=== PATIENT | female | born 1940 | race Caucasian/White ===

== ENCOUNTER 2016-09-09 11:35 | Observation (INO) | payer MEDICARE, OTHER ==
[~2016-09-09] VITALS: Ht 162.6 cm; Wt 87.8 kg
[~2016-09-09 11:35] MED LIST: AMBIEN 10MG10 MG PO; ASPIRIN E.C. 8181 MG PO; ATORVASTATIN; AVAPRO150 MG PO; COLACE 100100 MG/CAP PO; COZAAR100 MG PO; DYAZIDE 25 MG-31 CAP PO; EFFEXOR-XR150 MG PO; EFFEXOR25 M1 PO; GABAPENTIN; IRON325 M1 PO; LIPITOR20 MG PO; LYRICA 50MG CAP50 MG PO; MULTAQ400 MG PO; NORCO 325 MG-51 TAB PO; NORVASC 10MG10 MG PO; PREMARIN .3MG0.3 MG PO; PREMARIN0.625 MG PO; PRILOSEC 20MG20 MG PO; TAMBOCOR50 MG PO; TOPROL XL 25MG25 MG PO; TYLENOL 325MG325 MG PO; XARELTO20 MG PO
[2016-09-09 12:02] LABS: BASO # 0.1 (0.0-0.2); BASO % 0.8 % (0.0-2.0); EOS # 0.2 (0.0-0.7); EOS % 2.8 % (0-4.0); GRAN # 4.2 (1.4-6.5); HEMATOCRIT 38.3 % (37.0-47.0); HEMOGLOBIN 12.4 g/dl (12.5-16.0); LYMPH # 1.3 (1.2-3.4); LYMPH % 20.5 % (20.0-51.0); MEAN CELL VOLUME 92 fl (80.0-100.0); MEAN CORPUSCULAR HEMOGLOBIN 30 pg (27.0-31.0); MEAN CORPUSCULAR HGB CONC 32 g/dl (33.0-37.0); MEAN PLATELET VOLUME 9.9 fl (7.4-10.4); MONO # 0.5 (0.1-0.6); MONO % 8.4 % (1.7-9.3); PLATELET COUNT 248 K/mm3 (130-400); RED BLOOD COUNT 4.17 M/mm3 (4.10-5.30); REDCELL DISTRIBUTION WIDTH-CV 14.2 % (11.5-14.5); WHITE BLOOD COUNT 6.3 K/mm3 (4.8-10.8)
[2016-09-09 12:12] LABS: INR 1.2 (0.8-3.0); PROTHROMBIN TIME 13.6 SECONDS (9.7-12.8)
[2016-09-09 12:14] LABS: PARTIAL THROMBOPLASTIN TIME 30.9 SECONDS (26.0-37.0)
[2016-09-09 12:16] LABS: ADJUSTED CALCIUM 9.6 mg/dL (8.4-10.2); ALANINE AMINOTRANSFERASE 34 U/L (9-52); ALBUMIN 4.4 gm/dL (3.5-5.0); ALKALINE PHOSPHATASE 99 U/L (50-136); ANION GAP 11 mmol/L (7-16); BILIRUBIN,TOTAL 0.9 mg/dL (0.0-1.0); BLOOD UREA NITROGEN 24 mg/dL (7-17); CALCIUM 9.9 mg/dL (8.4-10.2); CARBON DIOXIDE 28 mmol/L (22-30); CHLORIDE 100 mmol/L (98-107); CREATININE, serum 1.05 mg/dL (0.52-1.25); GLUCOSE 103 mg/dL (74-106); LIPASE 58 U/L (23-300); POTASSIUM 3.8 mmol/L (3.4-5.0); SODIUM 139 mmol/L (137-145); TOTAL PROTEIN 7.9 gm/dL (6.4-8.2)
[2016-09-09 12:29] LABS: TROPONIN-I < 0.012 ng/mL (0.000-0.034)
[2016-09-09 14:41] VITALS: BP 181/71; PULSE 56; TEMP 97.5
[2016-09-09] MEDS ORDERED: ESTRACE 1MG1 MG/TAB PO (16:46)
[2016-09-09] MEDS ORDERED: NORCO 325 MG-51 TAB PO (16:47)
[2016-09-09 17:45] VITALS: BP 158/65; PULSE 63; TEMP 97
[2016-09-09 19:31] VITALS: BP 150/58; PULSE 57; TEMP 97.8
[2016-09-09 23:48] VITALS: BP 123/44; PULSE 66; TEMP 97.5
[2016-09-10] VITALS (7 sets, daily range): BP systolic 119–183; BP diastolic 47–75; PULSE 58–85; TEMP 97.3–97.9
[2016-09-10 08:39] LABS: CHOLESTEROL 163 mg/dL (120-200); HDL CHOLESTEROL 46 mg/dL; LDL CHOLESTEROL 89 mg/dL; TRIGLYCERIDE 141 mg/dL
[2016-09-10 08:45] LABS: TROPONIN-I < 0.012 ng/mL (0.000-0.034)
[2016-09-10] MEDS ORDERED: ASPIRIN 81M81 MG/TA2 PO (14:08)
== END 2016-09-10 16:00 | disposition home or self-care (01) ==
LOC: COL.ER 11:35 → MEDICAL 13:06
PROVIDERS: Emergency Medicine
DX: R07.89 Other chest pain (principal); I10 Essential (primary) hypertension; G89.29 Other chronic pain; M54.5 Low back pain; K21.9 Gastro-esophageal reflux disease without esophagitis; D64.9 Anemia, unspecified; E78.5 Hyperlipidemia, unspecified
CPT/HCPCS: 99222-AI; 99238; A9502; G0378; J2785

== ENCOUNTER → 2016-11-21 | Outpatient (CLI) | payer MEDICARE, OTHER ==
[~2016-11-21] MED LIST changes: +ASPIRIN 81M81 MG/TA2 PO; +ESTRACE 1MG1 MG/TAB PO
== END ==
LOC: MC.RAD 14:00
DX: Z12.31 Encounter for screening mammogram for malignant neoplasm of breast (principal); Z80.3 Family history of malignant neoplasm of breast

== ENCOUNTER 2018-08-18 09:55 | Day surgery (SDC) | payer MEDICARE ==
[2018-08-18] VITALS (7 sets, daily range): BP systolic 130–176; BP diastolic 58–76; PULSE 63–70; TEMP 97.3
[~2018-08-18] VITALS: Ht 162.7 cm; Wt 85.0 kg
[~2018-08-18 09:55] MED LIST changes: -IRON325 M1 PO; +MACROBID 1100 MG/CAP PO; +MEDROL 4MG DOSPA4 MG PO; +NATURAL IRON65 MG PO
[2018-08-18] MEDS ORDERED: OS-CAL 500 + D1 TAB PO (10:55)
[2018-08-18] MEDS ORDERED: CENTRUM SILVER1 CTB PO (10:56)
[2018-08-18] MEDS ORDERED: ASPIRIN E.C. 8181 MG PO (10:57)
[2018-08-18] MEDS ORDERED: PRINIVIL40 MG PO (10:58)
[2018-08-18] MEDS ORDERED: DOXYCYCLINE 10100 MG PO (11:02)
[2018-08-18] MEDS ORDERED: TESSALON P100 MG/CAP PO (11:03)
[2018-08-18] MEDS ORDERED: NORCO 325 MG-51 TAB PO (11:06)
--- NOTE | 2018-08-18 12:00 | NUR ---
ALL MEDS GIVEN VERBAL WITH READBACK FROM DR. ALVARO ALEGRIA FOR ADMIN TIMES.
[2018-08-18] MEDS ORDERED: CLEOCIN HCL300 MG PO (12:14)
--- NOTE | 2018-08-18 12:20 | NUR ---
Pt returned to EU 15 per bed s/p loop recorder removal. Pt resting well, daughter at bedside.
--- NOTE | 2018-08-18 13:00 | NUR ---
Slight bleeding noted on L chest dressing. Pressure held for 5 min. Old dressing removed. No bleeding observed at site. Sterile gauze and tegaderm placed over site.
--- NOTE | 2018-08-18 13:35 | NUR ---
Pt has ambulated, voided and katarina PO intake s n/v. PIV removed with catheter intact. Pt discharged per w/c by nurse with daughter.
== END 2018-08-18 15:59 | disposition home or self-care (01) ==
LOC: COL.CAR 09:55
DX: Z45.09 Encounter for adjustment and management of other cardiac device (principal); I48.0 Paroxysmal atrial fibrillation; E78.5 Hyperlipidemia, unspecified; G43.909 Migraine, unspecified, not intractable, without status migrainosus; I12.9 Hypertensive chronic kidney disease with stage 1 through stage 4 chronic kidney disease, or unspecified chronic kidney disease; N18.9 Chronic kidney disease, unspecified; F32.9 Major depressive disorder, single episode, unspecified; K21.9 Gastro-esophageal reflux disease without esophagitis; G47.00 Insomnia, unspecified; D50.9 Iron deficiency anemia, unspecified; M17.11 Unilateral primary osteoarthritis, right knee; G89.29 Other chronic pain; G62.9 Polyneuropathy, unspecified; Z90.710 Acquired absence of both cervix and uterus; Z88.5 Allergy status to narcotic agent; Z88.1 Allergy status to other antibiotic agents; Z91.048 Other nonmedicinal substance allergy status; Z88.8 Allergy status to other drugs, medicaments and biological substances; Z79.82 Long term (current) use of aspirin; Z79.01 Long term (current) use of anticoagulants; Z82.49 Family history of ischemic heart disease and other diseases of the circulatory system; Z80.3 Family history of malignant neoplasm of breast
CPT/HCPCS: J2250; J3010; J3370; J7050

== ENCOUNTER 2019-10-20 12:22 | Emergency (ER) | payer MEDICARE ==
[~2019-10-20] VITALS: Ht 162.6 cm; Wt 65.9 kg
[~2019-10-20 12:22] MED LIST changes: +CENTRUM SILVER1 CTB PO; +CLEOCIN HCL300 MG PO; +DOXYCYCLINE 10100 MG PO; +OS-CAL 500 + D1 TAB PO; +PRINIVIL40 MG PO; +TESSALON P100 MG/CAP PO
[2019-10-20 12:56] VITALS: BP 115/62; TEMP 97.2
[2019-10-20 13:39] LABS: BASO # 0.1 (0.0-0.2); BASO % 1.1 % (0.0-2.0); EOS # 0.4 (0.0-0.7); EOS % 4.2 % (0-4.0); GRAN % 47.3 % (42.2-75.2); LYMPH # 3.2 (1.2-3.4); LYMPH % 38.8 % (20.0-51.0); MEAN CELL VOLUME 92 fl (80.0-100.0); MEAN CORPUSCULAR HGB CONC 32 g/dl (33.0-37.0); MONO # 0.7 (0.1-0.6); MONO % 8.4 % (1.7-9.3); PLATELET COUNT 280 K/mm3 (130-400); RED BLOOD COUNT 3.37 M/mm3 (4.10-5.30)
[2019-10-20 13:48] LABS: HEMOGLOBIN 9.9 g/dl (12.5-16.0); MEAN CORPUSCULAR HEMOGLOBIN 29 pg (27.0-31.0)
[2019-10-20 13:49] LABS: BILIRUBIN,TOTAL 0.4 mg/dL (0.0-1.0); CALCIUM 9.2 mg/dL (8.4-10.2); CREATININE, serum 1.24 (0.52-1.25); HEMATOCRIT 30.9 % (37.0-47.0); POTASSIUM 4.3 mmol/L (3.4-5.0); TOTAL PROTEIN 6.8 gm/dL (6.4-8.2)
[2019-10-20] MEDS ORDERED: NORCO 325 MG-51 TAB PO (15:01)
--- NOTE | 2019-10-20 15:14 | NUR ---
SANDIP villafana responded to the ED for a social contact worker for the patient due to recent fall. SANDIP villafana met with the patient and the patient's daughter, Carol. The patient states Carol is supportive and is her "right" hand. SANDIP villafana inquired about the patient's comfortability with abmulating in her home. She states she will be able to get around. SANDIP villafana provided education about home health services and if she would like to have those services set up before discharging. Patient refused. SANDIP villafana provided Medicare.gov's list of home health agencies to the patient and explained the process of obtaining services once she is home, if needed. She was agreeable to take the information. SANDIP villafana collaborated the above information with the patient's nurse.
[2019-10-20 15:18] VITALS: PULSE 68
== END 2019-10-20 15:18 | disposition home or self-care (01) ==
LOC: COL.ER 12:22
PROVIDERS: Emergency Medicine
DX: S80.02XA Contusion of left knee, initial encounter (principal); S70.12XA Contusion of left thigh, initial encounter; D64.9 Anemia, unspecified; I48.91 Unspecified atrial fibrillation; Z79.01 Long term (current) use of anticoagulants; W10.9XXA Fall (on) (from) unspecified stairs and steps, initial encounter; Y92.009 Unspecified place in unspecified non-institutional (private) residence as the place of occurrence of the external cause

== ENCOUNTER 2020-06-18 10:50 | Emergency (ER) | payer MEDICARE ==
[~2020-06-18] VITALS: Ht 162.6 cm; Wt 84.1 kg
[2020-06-18 11:09] VITALS: TEMP 98.5
[2020-06-18 12:40] LABS: BASO % 0.2 % (0.0-2.0); EOS % 0.1 % (0-4.0); GRAN # 5.2 (1.4-6.5); GRAN % 61.2 % (42.2-75.2); HEMOGLOBIN 10.6 g/dl (12.5-16.0); LYMPH # 2.5 (1.2-3.4); MEAN CELL VOLUME 87 fl (80.0-100.0); MEAN CORPUSCULAR HEMOGLOBIN 27 pg (27.0-31.0); MEAN CORPUSCULAR HGB CONC 32 g/dl (33.0-37.0); MEAN PLATELET VOLUME 10.1 fl (7.4-10.4); MONO # 0.7 (0.1-0.6); MONO % 8.1 % (1.7-9.3); PLATELET COUNT 216 K/mm3 (130-400); RED BLOOD COUNT 3.87 M/mm3 (4.10-5.30); REDCELL DISTRIBUTION WIDTH-CV 18.6 % (11.5-14.5)
[2020-06-18 12:42] LABS: HEMATOCRIT 33.6 % (37.0-47.0)
[2020-06-18 12:53] LABS: ALBUMIN 4.1 gm/dL (3.5-5.0); BILIRUBIN,TOTAL 0.6 mg/dL (0.0-1.0); C-REACTIVE PROTEIN 8.9 mg/dL (0.0-0.9); CALCIUM 8.9 mg/dL (8.4-10.2); CREATININE, serum 1.25 (0.52-1.25); TOTAL PROTEIN 7.4 gm/dL (6.4-8.2)
[2020-06-18 13:50] LABS: COLLECTION METHOD CLEAN CATCH
[2020-06-18] MEDS ORDERED: ZITHROMAX Z PA250 MG PO (13:59)
[2020-06-18] MEDS ORDERED: PREDNISONE10 MG PO (13:59)
[2020-06-18] MEDS ORDERED: NORCO 325 MG-51 TAB PO (14:00)
[2020-06-18 14:14] LABS: PH 5 (5-8); SQUAMOUS EPITHELIAL 0-2 /hpf; URINE APPEARANCE Hazy; URINE BACTERIA Rare /hpf; URINE BILIRUBIN Negative (NEGATIVE); URINE BLOOD Negative (NEGATIVE); URINE COLOR Yellow; URINE GLUCOSE Negative (NEGATIVE); URINE KETONE Negative (NEGATIVE); URINE LEUKOCYTE ESTERASE Negative (NEGATIVE); URINE NITRATE Negative (NEGATIVE); URINE PROTEIN(semi-quant) Negative (NEGATIVE); URINE UROBILINOGEN Negative (NEGATIVE)
[2020-06-18 15:32] VITALS: BP 146/64; PULSE 64
== END 2020-06-18 14:33 | disposition home or self-care (01) ==
LOC: COL.ER 10:50
PROVIDERS: Family Medicine
DX: U07.1 COVID-19 (principal); I10 Essential (primary) hypertension; G89.29 Other chronic pain; Z88.1 Allergy status to other antibiotic agents; Z88.6 Allergy status to analgesic agent; Z79.01 Long term (current) use of anticoagulants
CPT/HCPCS: J2405; J3010; J7120

== ENCOUNTER 2020-06-23 14:18 | Inpatient (IN) | payer MEDICARE ==
[~2020-06-23] VITALS: Ht 162.6 cm; Wt 81.8 kg
[~2020-06-23 14:18] MED LIST changes: +PREDNISONE10 MG PO; +ZITHROMAX Z PA250 MG PO
[2020-06-23 14:40] LABS: BASO % 0.1 % (0.0-2.0); EOS % 0.1 % (0-4.0); GRAN # 5.7 (1.4-6.5); GRAN % 72.7 % (42.2-75.2); HEMOGLOBIN 11.3 g/dl (12.5-16.0); LYMPH # 1.7 (1.2-3.4); LYMPH % 21.1 % (20.0-51.0); MEAN CELL VOLUME 84 fl (80.0-100.0); MEAN CORPUSCULAR HEMOGLOBIN 27 pg (27.0-31.0); MEAN CORPUSCULAR HGB CONC 32 g/dl (33.0-37.0); MEAN PLATELET VOLUME 9.8 fl (7.4-10.4); MONO # 0.4 (0.1-0.6); MONO % 5.2 % (1.7-9.3); PLATELET COUNT 301 K/mm3 (130-400); RED BLOOD COUNT 4.15 M/mm3 (4.10-5.30); REDCELL DISTRIBUTION WIDTH-CV 17.3 % (11.5-14.5)
[2020-06-23 14:54] LABS: ALBUMIN 3.9 gm/dL (3.5-5.0); BILIRUBIN,TOTAL 0.5 mg/dL (0.0-1.0); CALCIUM 9.4 mg/dL (8.4-10.2); CREATININE, serum 1.07 (0.52-1.25); POTASSIUM 3.8 mmol/L (3.4-5.0); TOTAL PROTEIN 7.3 gm/dL (6.4-8.2)
[2020-06-23 15:43] LABS: COLLECTION METHOD CLEAN CATCH
[2020-06-23 16:15] LABS: PH 7 (5-8); SQUAMOUS EPITHELIAL 0-2 /hpf; URINE APPEARANCE Hazy; URINE BACTERIA Rare /hpf; URINE BILIRUBIN Negative (NEGATIVE); URINE BLOOD Negative (NEGATIVE); URINE COLOR Yellow; URINE GLUCOSE Negative (NEGATIVE); URINE KETONE Negative (NEGATIVE); URINE LEUKOCYTE ESTERASE Negative (NEGATIVE); URINE NITRATE Negative (NEGATIVE); URINE PROTEIN(semi-quant) Negative (NEGATIVE); URINE RBC 0-2 /hpf; URINE UROBILINOGEN Negative (NEGATIVE)
--- NOTE | 2020-06-23 18:15 | NUR ---
Patient up to bathroom with assistance of one. PT was able to void an unmeasured amount. PT helped back to bed without incident. PT is laying in bed resting with call light in reach.
--- NOTE | 2020-06-23 19:58 | NUR ---
Patient alert and oriented, complain of weakness. patient was transferred from ER this evening. Medication reconciliation completed. Telemetry implemented.
[2020-06-23 20:07] VITALS: BP 170/88; PULSE 80; TEMP 98
--- NOTE | 2020-06-23 21:40 | NUR ---
Patient assessed at this time. Alert and oriented x 4, and able to make needs known. Complained of headache, and give PRN APAP as requested. Peripheral INT with NS running at 125 ml/hr. Site without redness, warmth, swelling, and pain. Currently on oxygen at 3.5 L/min via NC, humidified. Respirations even and unlabored. Patient has dry cough with no sputum production. LS CTA. Respirations even and unlabored. HRR. Telemetry in place: sinus. Capillary refill less than 3 seconds. Non-tenting skin turgor. BSAx4. Abdomen soft and non-tender. No edema. Voices no questions, needs, or concerns at this time. Resting in bed with call light within reach. Amulated to bathroom with stand-by assist with walker.
[2020-06-23 23:31] VITALS: BP 158/64; PULSE 64; TEMP 98.2
[2020-06-24 04:50] VITALS: BP 150/64; PULSE 75; TEMP 98.2
--- NOTE | 2020-06-24 06:32 | NUR ---
Patient has had no further complaints of pain or discomfort this shift since receiving PRN APAP around 2200. Continues on oxygen at 3.5 L/min via NC. Voices no questions, needs, or concerns at this time. Resting in bed with call light within reach.
[2020-06-24 08:00] VITALS: BP 138/78; PULSE 82; TEMP 97.9
--- NOTE | 2020-06-24 08:15 | NUR ---
Patient laying in bed, A&Ox3. VSS 3.5L NC O2. No complaints of SOB, has complaints of dizziness. Doctor notified. IV CDI, fluids infusing. Droplet/covid precautions in place. Patient instructed to call nursing staff when needing to ambulate. Patient verbalized an understanding to follow doctors orders. No further needs expressed from the patient. Call light within reach
[2020-06-24 12:00] VITALS: BP 140/90; PULSE 82; TEMP 97.8
[2020-06-24 16:50] VITALS: BP 164/58; PULSE 70; TEMP 98.4
--- NOTE | 2020-06-24 19:23 | NUR ---
Patient laying in bed. A&Ox3. VSS. 3.5L NC O2. No reported SOB. IV CDI fluids infusing. Droplet/contact precautions in place. No further needs expressed from the patient. Call light within reach
[2020-06-24 20:08] VITALS: BP 135/78; PULSE 72; TEMP 98.7
--- NOTE | 2020-06-24 22:20 | NUR ---
Pt resting in bed, assessment completed and medications given per OCT. pt reporting a headache rating a 6 out of 10, gave tylenol prn. onxygen via nasal cannula on 3.5 liters, lung sounds are diminished with a nonproductive cough. heart sounds are regular and normal. no other needs at this time, will continue to monitor.
[2020-06-25] VITALS (7 sets, daily range): BP systolic 115–176; BP diastolic 52–78; PULSE 68–76; TEMP 98–98.8
--- NOTE | 2020-06-25 04:43 | NUR ---
pt reporting nausea, gave zofran ODT prn and provided sprite and crackers per pt request. pt slept in bed most of the night, called for any assistance needed. no other needs at this time, will continue to monitor.
--- NOTE | 2020-06-25 07:59 | NUR ---
REPORT RECEVIED AND PT ROUNDED ON. VS CHARTED. ELEVATED BP BUT MANY SCHEDULED BP MEDS THIS MORNING. PT WITH STRONG COUGH, DRY. AWARE SPUTUM NEEDED. AMBULATED TO BATHROOM STANDBY ASSIST WITH WALKER. DESATURATED TO 88% ON 3.5l AND WOULD NOT INCREASE ABOVE 90% AFTER 8 MINS. INCREASED TO 4l WITH O2 SAT 93%. REPORTS HEADACHE 6/10 UNRELIEVED BY TYLENOL. DIARRHEA SINCE ADMISSION BTU NONE THIS AM. LUNGS CLEAR. DENIES NAUSEA. REPORTS FEELING VERY WEAK BUT DENIES VERTIGO. WILL CONT TO MONITOR.
--- NOTE | 2020-06-25 13:41 | NUR ---
pt rounded on. lunch delivered. reports headache gone. IVF dc'd as ordered. remains on 4L nc. no bathroom or other needs at this time.
--- NOTE | 2020-06-25 16:49 | NUR ---
Home Improvement Advisor spoke with patient by phone to discuss discharge planning as she is COVID positive. Patient lives alone in [place] and sees Dr. Montanez for primary care. Patient has most of her medications mailed to her by [facility] and also utilizes [facility]. Patient uses a cane and no other DME. Patient is currently requiring oxygen. Patient is independent with ADLS and would like to return home upon discharge. SW spoke with patient about home health services and patient states she doesn't feel it's necessary at this time. Patient has DPOA in the EMR which designates her daughter, Floresita. ANNE contacted Floresita who advised she is concerned about patient being strong enough to return home. Floresita would like patient to return home if she's able. Floresita also requested a call from the Hospitalist. ANNE contacted Dr. Torres and requested he call Floresita if he has time. ANNE also discussed PT/OT with Dr. Torres who states he spoke with staff analyst about getting patient up in her room. ANNE will continue to follow.
--- NOTE | 2020-06-25 17:56 | NUR ---
PT ROUNDED NON. ASSISTED INTO SHOWER WHERE SHE ONLY REQUIRED SET UP
--- NOTE | 2020-06-25 23:06 | NUR ---
pt resting in bed, assessment completed and medications given per MAR. pt denies shortness of breath, reports nonproductive cough and lung sounds are diminished. oxygen via nasal cannula on 4 liters. heart sounds are regular and normal. pt reporting headache that worsens when coughing, did not want any pain medication. fluids were discontinued today, pt independent in room and calls for any needs. will continue to monitor.
[2020-06-26 04:00] VITALS: BP 138/63; PULSE 75; TEMP 99.3
--- NOTE | 2020-06-26 06:18 | NUR ---
pt sleeping in bed most of the night, called for any needs. continues on oxygen at 4 liters nasal cannula. no fevers throughout the night, vital signs were stable. no other needs at this time.
[2020-06-26 07:44] VITALS: BP 186/76; PULSE 77; TEMP 99.4
--- NOTE | 2020-06-26 09:03 | NUR ---
PT PLEASANT, AOX4, C/O HEADACHE 01/24. PT C/O NAUSEA. BP MEDS GIVEN TO REDUCE BP AND TO DEC HEADACHE. ZOFRAN GIVEN FOR NAUSEA. PT ASSESSMENT PERFORMED, MEDICATIONS GIVEN, VITALS REVIEWED, PT IND IN ROOM. DID REPORT X1 EPISODE OF INCONTINENCE. TECH ASSISTED PT IN CLEANING UP AND CHANGING. ICE WATER BROUGHT IN, PT ATE MAJORITY OF BREAKFAST, NO OTHER NEEDS.
[2020-06-26 11:17] VITALS: BP 164/74; PULSE 64; TEMP 98.6
--- NOTE | 2020-06-26 12:40 | NUR ---
PT DAUGHTER UPDATED, NUMBER GIVEN TO PHYSICIAN FOR UPDATE FROM HIM.
--- NOTE | 2020-06-26 14:59 | NUR ---
PT DAUGHTER UPDATED, SHYANN ASKED TO CONTACT DAUGHTER PT PT'S DAUGHTER'S REQUEST.
[2020-06-26 16:28] VITALS: BP 138/96; PULSE 68; TEMP 97.9
--- NOTE | 2020-06-26 16:49 | NUR ---
Architectural Draftsman was contacted by patient's daughter, Carol who advised she heard from Hospitalist today, but was frustrated that this was the first time she has heard any updates on her mom. Carol states patient presented to the ED Thursday and no physician called her until today. Carol asked who she could speak to about this and ANNE provided contact information for Jael, Larry Operator. ANNE also contacted Jael and left a message. ANNE contacted Hospitalist to request PT/OT.
--- NOTE | 2020-06-26 17:02 | NUR ---
PT PLEASANT, AOX4, OXYGEN TURNED DOWN TO 2.5L, PT STILL SATTING 96%. WILL CONTINUE TO TITRATE DOWN. VITALS STABLE, PRN HYDRALAZINE ORDER PLACED FOR INC SYSTOLIC, PT DOES NOT REPORT SOB AT REST OR WITH ACTIVITY, REMDESIVIR INFUSING, PT REPORTED HEADACHE IN AM BUT HAS SINCE RESOLVED WITH NORCO. PT HAS GOOD INPUT. INDEPENDENT IN ROOM. NO OTHER NEEDS AT THIS TIME.
[2020-06-26 20:16] VITALS: BP 135/78; PULSE 72; TEMP 98.3
--- NOTE | 2020-06-26 23:14 | NUR ---
Pt resting in bed, delievered gift that was dropped off for pt. assessment completed and medications given per OCT. oxygen on at 2.5 liters via nasal cannula. pt reporting improvement of shortness of breath and dry cough. pt denies pain at this time. lung sounds are diminished. heart sounds regular and normal. no fever and vital signs are stable. will continue to monitor.
[2020-06-27] VITALS (7 sets, daily range): BP systolic 138–158; BP diastolic 60–86; PULSE 63–69; TEMP 97.8–98.3
--- NOTE | 2020-06-27 06:21 | NUR ---
pt sleeping most of the night, called for any needs or assistance. no fever, vital signs stable. pt denies pain and states that shortness of breath is improving. oxygen on 2.5 liters via nasal cannula, oxygen sat in mid 90s. no other needs at this time.
--- NOTE | 2020-06-27 08:40 | NUR ---
PT PLEASANT, AOX4, DENIES SOB, REPORTS SOME DYSPNEA ON EXERTION, PT STILL ON 2.5L NC. PT VITALS REVIEWED, MEDICAITONS GIVEN, AND ASSESSMENT PERFORMED, LABS DRAWN, ICE WATER AND BREAKFAST BROUGHT IN FOR PT. PT APPEARS IN GOOD SPIRITS, STATES SHE FEELS BETTER THAN SHE DID YESTERDAY. NO OTHER NEEDS.
[2020-06-27 09:08] LABS: BASO % 0.2 % (0.0-2.0); EOS % 0.2 % (0-4.0); GRAN # 5.1 (1.4-6.5); GRAN % 77.9 % (42.2-75.2); HEMOGLOBIN 10.1 g/dl (12.5-16.0); LYMPH % 14.9 % (20.0-51.0); MEAN CELL VOLUME 84 fl (80.0-100.0); MEAN CORPUSCULAR HEMOGLOBIN 27 pg (27.0-31.0); MEAN CORPUSCULAR HGB CONC 32 g/dl (33.0-37.0); MEAN PLATELET VOLUME 9.7 fl (7.4-10.4); MONO # 0.4 (0.1-0.6); MONO % 5.4 % (1.7-9.3); PLATELET COUNT 345 K/mm3 (130-400); RED BLOOD COUNT 3.73 M/mm3 (4.10-5.30); REDCELL DISTRIBUTION WIDTH-CV 16.9 % (11.5-14.5)
[2020-06-27 09:12] LABS: HEMATOCRIT 31.4 % (37.0-47.0)
[2020-06-27 12:32] LABS: ALBUMIN 3.2 gm/dL (3.5-5.0); BILIRUBIN UNCONJUGATED 0.1 mg/dL (0.0-1.1); BILIRUBIN,DIRECT 0.3 mg/dL (0.0-0.4); BILIRUBIN,TOTAL 0.4 mg/dL (0.0-1.0); CALCIUM 8.8 mg/dL (8.4-10.2); CREATININE, serum 0.95 (0.52-1.25); POTASSIUM 3.4 mmol/L (3.4-5.0); TOTAL PROTEIN 6.2 gm/dL (6.4-8.2)
--- NOTE | 2020-06-27 17:47 | NUR ---
PT ASSISTED TO BATHROOM, PT GAIT STEADY, ONCE PT BACK IN BED SHE DID NOT APPEAR SOB BUT HER O2 SATS WERE 87%. ONCE RESTING HER OXYGEN CAME UP TO 93%. BS TAKEN, VITALS TAKEN, PT PLEASANT, DINNER BROUGHT INTO ROOM. SHIFT OVERALL UNEVENTFUL, PT HAS ACTIVE COUGH WITH NO SPUTUM. NO OTHER NEEDS.
--- NOTE | 2020-06-27 19:25 | NUR ---
Patient assessed at this time. Alert and oriented x 4, and able to make needs known. Denies having pain and discomfort at this time. Peripheral INT to left AC flushed. Site without redness, warmth, swelling, and pain. Denies SOB and dysypnea at rest. Does report dyspnea with exertion. On oxygen at 2.5 L/min via NC. LS CTA. Respirations even and unlabored at rest. HRR. Capillary refill less than 3 seconds. Non-tenting skin turgor. BSAx4. Abdomen soft and non-tender. No edema. Voices no questions, needs, or concerns at this time. Resting in bed with call light within reach.
--- NOTE | 2020-06-27 21:15 | NUR ---
Patient complaining of headache. Given PRN [place] as requested. Voices no further questions, needs, or concerns at this time. Resting in bed with call light within reach.
[2020-06-28 04:50] VITALS: BP 160/90; PULSE 64; TEMP 97.6
--- NOTE | 2020-06-28 05:54 | NUR ---
Patient has had no further complaints of pain or discomfort since receiving PRN [place]. Has voiced no questions, needs, or concerns at this time. Continues to wear oxygen at 2.5 L/min via NC. Resting in bed with call light within reach. Contact/droplet isolation remains in place.
[2020-06-28 06:24] LABS: MEAN CELL VOLUME 85 fl (80.0-100.0); MEAN CORPUSCULAR HGB CONC 33 g/dl (33.0-37.0); MEAN PLATELET VOLUME 10.4 fl (7.4-10.4); PLATELET COUNT 365 K/mm3 (130-400); RED BLOOD COUNT 3.18 M/mm3 (4.10-5.30); REDCELL DISTRIBUTION WIDTH-CV 16.8 % (11.5-14.5)
[2020-06-28 06:25] LABS: HEMATOCRIT 26.9 % (37.0-47.0); HEMOGLOBIN 8.8 g/dl (12.5-16.0); MEAN CORPUSCULAR HEMOGLOBIN 28 pg (27.0-31.0)
[2020-06-28 06:33] LABS: CALCIUM 8.5 mg/dL (8.4-10.2); CREATININE, serum 0.98 (0.52-1.25); POTASSIUM 3.8 mmol/L (3.4-5.0)
[2020-06-28 06:41] LABS: HYPOCHROMIA 1+; LYMPHOCYTE 7 % (20.0-51.0); NEUTROPHILS 87 % (42.0-75.2); OVALOCYTES 1+; PLATELET ESTIMATE NORMAL (NORMAL)
[2020-06-28 09:56] VITALS: BP 148/84; PULSE 73; TEMP 97.7
--- NOTE | 2020-06-28 10:00 | NUR ---
Pt awake and alert upon, Pt in restroom, no C/O pain at this time, shift assessments complete, left Pt call light in reach, bed in lowest position.
[2020-06-28 13:07] VITALS: BP 132/54; PULSE 68; TEMP 98.2
--- NOTE | 2020-06-28 15:58 | NUR ---
Business Analysis Analyst followed up with patient's daughter Carol to discuss discharge planning. ANNE reviewed PT recommendation for Home Health and also advised that during PT evaluation, patient declined post acute rehab twice. ANNE advised that with patient having a positive COVID test, local SNFs would not accept until she has a negative. ANNE reviewed option for [facility] if needed. Carol would like to speak with patient then follow up. ANNE contacted Carol this afternoon to follow up and Carol advised patient is insistent on going home and feels she can do it. Carol states she will support patient's decision. ANNE discussed home health with Carol who will review options and follow up with ANNE.
[2020-06-28 16:00] VITALS: BP 146/62; PULSE 77; TEMP 98.1
[2020-06-28 18:29] VITALS: BP 146/62; PULSE 77; TEMP 98.1
[2020-06-28 20:27] VITALS: BP 148/80; PULSE 69; TEMP 98.1
--- NOTE | 2020-06-28 21:50 | NUR ---
Patient assessed at this time. Alert and oriented x 4, and able to make needs known. Denies having pain and discomfort at this time. Peripheral INT to left AC. Site without redness, warmth, swelling, and pain. Denies having SOB and dyspnea. LS CTA. Respirations even and unlabored. HRR. Capillary refill less than 3 seconds. Non-tenting skin turgor. BSAx4. Abdomen soft and non-tender. No edema. Voices no questions, needs, or concerns at this time. Resting in bed with call light within reach.
[2020-06-29 00:15] VITALS: BP 146/78; PULSE 76; TEMP 98
[2020-06-29 04:37] VITALS: BP 150/66; PULSE 59; TEMP 98
--- NOTE | 2020-06-29 06:20 | NUR ---
Patient has denied having pain and discomfort this shift. Voices no questions, needs, or concerns at this time. Resting in bed with call light within reach.
--- NOTE | 2020-06-29 07:00 | NUR ---
Report received from KARRIE Giang. PT in bed resting, denies needs, will bring ice as requested with breakfast, will continue to monitor.
[2020-06-29 07:27] LABS: MEAN CELL VOLUME 85 fl (80.0-100.0); MEAN CORPUSCULAR HGB CONC 32 g/dl (33.0-37.0); MEAN PLATELET VOLUME 10.5 fl (7.4-10.4); PLATELET COUNT 381 K/mm3 (130-400); RED BLOOD COUNT 3.26 M/mm3 (4.10-5.30); REDCELL DISTRIBUTION WIDTH-CV 16.8 % (11.5-14.5)
[2020-06-29 07:39] LABS: HEMATOCRIT 27.7 % (37.0-47.0); HEMOGLOBIN 8.9 g/dl (12.5-16.0); MEAN CORPUSCULAR HEMOGLOBIN 27 pg (27.0-31.0)
[2020-06-29 08:04] LABS: BILIRUBIN,TOTAL 0.3 mg/dL (0.0-1.0); CALCIUM 8.5 mg/dL (8.4-10.2); CREATININE, serum 0.97 (0.52-1.25); TOTAL PROTEIN 5.8 gm/dL (6.4-8.2)
[2020-06-29 08:35] VITALS: BP 142/76; PULSE 64; TEMP 97.8
[2020-06-29 09:11] LABS: BAND 3 % (0-10); LYMPHOCYTE 18 % (20.0-51.0); NEUTROPHILS 69 % (42.0-75.2)
[2020-06-29 09:18] LABS: ANISOCYTOSIS 1+; HYPOCHROMIA 1+; PLATELET ESTIMATE NORMAL (NORMAL)
--- NOTE | 2020-06-29 10:09 | NUR ---
Assessment charted. Pt feeling well, really hoping to discharge otday. Discussed exercise oximetry. INT to L A/C. Denies pain, coughing some. Report/update given to Brennan. Will continue to monitor.
[2020-06-29 11:53] VITALS: BP 138/78; PULSE 67; TEMP 97.8
[2020-06-29] MEDS ORDERED: OXYGEN (12:10)
[2020-06-29] MEDS ORDERED: GERI-TUSSIN DM473 ML PO (12:27)
[2020-06-29] MEDS ORDERED: DECADRON6 MG PO (12:28)
--- NOTE | 2020-06-29 15:56 | NUR ---
[facility]charge [facility] at [facility]. INT dc'd, tip intact. Pt received discharge packet, signed documents outside of room per patients consent. Pt verbalized understanding of all documents, f/u and meds. Pt left wtih all belongnings, escorted out by myself and 2nd person acting as clean person. Pt left wtih home O2 delivered to room, daughter to drive home, criteria met.
--- NOTE | 2020-06-29 17:05 | NUR ---
Boat Assembler contacted patient's daughter, Carol to discuss discharge plan as patient is ready for discharge today and will require home oxygen. Carol would like to utilize [facility] and [facility]. ANNE faxed referrals. Leah with [facility] received referral and advised they will bring up a tank and leave it at the nurses station. ANNE spoke with Parvin at [facility] who advised they can accept patient for services. ANNE faxed discharge orders. 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 No additional needs at this time.
== END 2020-06-29 15:59 | disposition home health service (06) | DRG 871 ==
LOC: COL.ER 14:18 → PEDS 15:29
PROVIDERS: Family Medicine; Physician Assistant; Student in an Organized Health Care Education/Training Program
PROC: XW033E5 Introduction of Remdesivir Anti-infective into Peripheral Vein, Percutaneous Approach, New Technology Group 5 (ICD-10-PCS; principal; 2020-06-23)
DX: A41.89 Other specified sepsis (principal); U07.1 COVID-19; J96.01 Acute respiratory failure with hypoxia; J12.89 Other viral pneumonia; I10 Essential (primary) hypertension; E03.9 Hypothyroidism, unspecified; H81.11 Benign paroxysmal vertigo, right ear; E78.5 Hyperlipidemia, unspecified; F41.9 Anxiety disorder, unspecified; D64.9 Anemia, unspecified; R73.9 Hyperglycemia, unspecified; K21.9 Gastro-esophageal reflux disease without esophagitis; I48.91 Unspecified atrial fibrillation; Z88.0 Allergy status to penicillin; Z79.01 Long term (current) use of anticoagulants
CPT/HCPCS: 99232-AI; 99239; J0696; J1100; J7030; J7050; J7120

== ENCOUNTER 2020-07-09 17:27 | Observation (INO) | payer MEDICARE ==
[~2020-07-09] VITALS: Ht 162.6 cm; Wt 88.0 kg
[~2020-07-09 17:27] MED LIST changes: +DECADRON6 MG PO; +GERI-TUSSIN DM473 ML PO; +OXYGEN
[2020-07-09 18:04] LABS: BASO % 0.5 % (0.0-2.0); EOS # 0.2 (0.0-0.7); EOS % 2.1 % (0-4.0); GRAN # 4.5 (1.4-6.5); GRAN % 56.5 % (42.2-75.2); LYMPH # 2.4 (1.2-3.4); LYMPH % 29.7 % (20.0-51.0); MEAN CELL VOLUME 88 fl (80.0-100.0); MEAN CORPUSCULAR HGB CONC 32 g/dl (33.0-37.0); MONO # 0.8 (0.1-0.6); MONO % 9.9 % (1.7-9.3); PLATELET COUNT 293 K/mm3 (130-400); RED BLOOD COUNT 3.02 M/mm3 (4.10-5.30); REDCELL DISTRIBUTION WIDTH-CV 18.9 % (11.5-14.5)
[2020-07-09 18:05] LABS: HEMATOCRIT 26.7 % (37.0-47.0); HEMOGLOBIN 8.4 g/dl (12.5-16.0); MEAN CORPUSCULAR HEMOGLOBIN 28 pg (27.0-31.0)
[2020-07-09 18:15] LABS: ALANINE AMINOTRANSFERASE 19 U/L (4-34); ALBUMIN 3.3 gm/dL (3.5-5.0); ALKALINE PHOSPHATASE 92 U/L (50-136); ANION GAP 6 mmol/L (7-16); AST,SGOT 29 U/L (15-37); BILIRUBIN,TOTAL 0.6 mg/dL (0.0-1.0); BLOOD UREA NITROGEN 24 mg/dL (7-17); CALCIUM 8.7 mg/dL (8.4-10.2); CARBON DIOXIDE 29 mmol/L (22-30); CHLORIDE 101 mmol/L (98-107); CREATININE, serum 1.36 (0.52-1.25); GLUCOSE 102 mg/dL (74-106); POTASSIUM 4.1 mmol/L (3.4-5.0); SODIUM 135 mmol/L (137-145); TOTAL PROTEIN 5.8 gm/dL (6.4-8.2)
[2020-07-09 18:27] LABS: TROPONIN-I < 0.012 ng/mL (0.000-0.035)
[2020-07-09 20:04] LABS: COLLECTION METHOD CLEAN CATCH
[2020-07-09 20:09] LABS: PH 7 (5-8); SQUAMOUS EPITHELIAL 0-2 /hpf; URINE APPEARANCE Clear; URINE BACTERIA None Seen /hpf; URINE BILIRUBIN Negative (NEGATIVE); URINE BLOOD Negative (NEGATIVE); URINE COLOR Straw; URINE GLUCOSE Negative (NEGATIVE); URINE KETONE Negative (NEGATIVE); URINE LEUKOCYTE ESTERASE Negative (NEGATIVE); URINE NITRATE Negative (NEGATIVE); URINE PROTEIN(semi-quant) Negative (NEGATIVE); URINE RBC 0-2 /hpf; URINE UROBILINOGEN Negative (NEGATIVE)
[2020-07-09 23:47] VITALS: BP 144/62; PULSE 73; TEMP 98.3
[2020-07-10] VITALS (12 sets, daily range): BP systolic 122–156; BP diastolic 45–589; PULSE 68–83; TEMP 97–99.4
[2020-07-10] MEDS ORDERED: LYRICA 100MG C100 M1 PO (00:35)
[2020-07-10] MEDS ORDERED: TOPROL XL 50MG50 MG PO (00:39)
--- NOTE | 2020-07-10 01:13 | NUR ---
PT ARRIVED TO UNIT @ 2340 AND WAS ASSISTED ONTO BEDSIDE COMMODE. AOX4. REPORTS MOEEATE HEADACHE. DAUGHTER VIJAYA CALLED AND UPDATED ON PT PROGRESS. ALL NEEDS MET
[2020-07-10 06:54] LABS: BASO % 0.2 % (0.0-2.0); EOS # 0.2 (0.0-0.7); EOS % 3.4 % (0-4.0); GRAN # 2.6 (1.4-6.5); GRAN % 48.5 % (42.2-75.2); LYMPH # 1.8 (1.2-3.4); LYMPH % 34.5 % (20.0-51.0); MEAN CELL VOLUME 89 fl (80.0-100.0); MEAN CORPUSCULAR HGB CONC 32 g/dl (33.0-37.0); MEAN PLATELET VOLUME 9.8 fl (7.4-10.4); MONO # 0.6 (0.1-0.6); MONO % 12.1 % (1.7-9.3); PLATELET COUNT 253 K/mm3 (130-400); RED BLOOD COUNT 2.49 M/mm3 (4.10-5.30); REDCELL DISTRIBUTION WIDTH-CV 18.9 % (11.5-14.5)
[2020-07-10 06:59] LABS: HEMATOCRIT 22.2 % (37.0-47.0); MEAN CORPUSCULAR HEMOGLOBIN 28 pg (27.0-31.0)
[2020-07-10 07:08] LABS: CALCIUM 7.8 mg/dL (8.4-10.2); CREATININE, serum 1.06 (0.52-1.25); POTASSIUM 3.6 mmol/L (3.4-5.0)
--- NOTE | 2020-07-10 14:25 | NUR ---
Service Car Operator attempted to contact patient on her personal cell (ph#[phone]) and by room phone with no sucess. SW then contacted patient's daughter, Carol (ph#[phone]) to discuss discharge planning. Patient is a readmit and was here on 06/23/20-06/29/20 for acute hypoxic respiratory failure. Patient was positive for COVID 19 at last admission and tested positive again upon this admission. Patient was discharged home on 06/29/20 with [facility] PT/OT/Nursing and home oxygen from [facility]. Carol reports she has been staying with patient since last discharge but has concerns about patient returning home again. Carol states her overall goal would be for patient to return home, but feels she needs rehab before doing so. Patient lives alone in [place] and sees Dr. Montanez for primary care. Patient had a telehealth visit with Dr. Montanez on 07/03/20. Patient has most of her medications mailed to her home by [facility] but also utilized [facility]. Carol advised there were no issues with patient's medications at discharge. Patient uses a cane and has home oxygen from [facility]. Patient has Advance Directives in EMR which designate her daughter, Carol. ANNE spoke with Carol about placement options with patient still testing positive for COVID. ANNE reviewed both [facility] and [facility] in [place]. Carol is agreeable to have referrals sent, but wants to discuss these options with her mother further before a final decision is made. Carol states patient may initially be resistant to rehab, but she will keep talking with patient about this. ANNE contacted Rocío at [facility] to give referral. ANNE also contacted Dalila at [facility] and faxed referral. ANNE collaborated with Hospitalist who advised even though patient is testing positive, she is being taken off isolation precautions as she is not longer infectious. ANNE contacted Parvin at [facility] and provided update on patient. ANNE will continue to follow.
--- NOTE | 2020-07-10 15:51 | NUR ---
Assessment Manager collaborated with Valerie at [facility] and gave general information about patient's COVID testing. Valerie checked with the team and they will not be able to consider, even though patient is off isolation.
--- NOTE | 2020-07-10 16:04 | NUR ---
Type Proof Reproducer collaborated with Rocío at [facility] who expressed concern about patient's hemoglobin. On admission it was 8.4 and today was 7.0.
--- NOTE | 2020-07-10 16:17 | NUR ---
Automatic Shirring Machine Operator spoke with Dalila at [facility], who reviewed referral. Dalila advised that after the team and physician reviewed, they decided to deny based on patient's payer source and limited medical needs. Dalila advised that even if they submitted, they likely would not get approval based on what was sent over and did not want a pending authorization to hold up discharge.
--- NOTE | 2020-07-10 16:25 | NUR ---
Waleska, IPR Director staffed with this SW. There was an IPR consult made for the patient. Waleska states the patient is too functional for IPR.
[2020-07-10 17:20] LABS: IRON,SERUM 83 ug/dL (35-150)
[2020-07-10 17:29] LABS: HEMATOCRIT 23.4 % (37.0-47.0); HEMOGLOBIN 7.3 g/dl (12.5-16.0)
--- NOTE | 2020-07-10 17:29 | NUR ---
Patient resting in bed. Working on a work such puzzle book. She is in good spirits and very thankful to be off COVID isolation. Patient daughter aware of plan of care. This nurse spoke with her as well as hospitalsit & patient, Patient receiving unit of blood per orders. blood policy followed. New 20G IV started by Jessie YOON. Vss. Patient reports good appetite & did well at lunch and ready for dinner. Patient aware we need stool occult if she good to the restroom, supplies in room. Patient has denies pain today. Will continue to monitor.
[2020-07-10 17:30] LABS: TOTAL IRON BINDING CAPACITY 239 ug/dL (265-497)
--- NOTE | 2020-07-10 19:34 | NUR ---
Gina MOLINA notified stool occult positive. No orders at this time
--- NOTE | 2020-07-10 20:10 | NUR ---
Resting in bed. Assessment complete. Lungs clear. Heart sounds normal. Bowels active x4. Pulses present throughout. No edema noted. INT left forearm without complications. Denies pains. Denies needs. Call light in reach. Dr. Wing in to see patient.
--- NOTE | 2020-07-10 20:19 | NUR ---
Blood transfusion complete. Tolerated well.
[2020-07-10 21:05] LABS: HEMOGLOBIN 8.7 g/dl (12.5-16.0)
--- NOTE | 2020-07-11 00:30 | NUR ---
Resting in bed. Denies needs. Denies pain. Call light in reach.
[2020-07-11 03:15] VITALS: BP 140/47; PULSE 68; TEMP 98.4
--- NOTE | 2020-07-11 05:49 | NUR ---
Patient required x1 dose of tylenol for headache during night. Otherwise uneventful night. Resting in bed this AM. Call light in reach.
[2020-07-11 06:27] LABS: BASO % 0.2 % (0.0-2.0); EOS # 0.2 (0.0-0.7); EOS % 3.2 % (0-4.0); GRAN # 2.3 (1.4-6.5); GRAN % 47.1 % (42.2-75.2); LYMPH # 1.8 (1.2-3.4); LYMPH % 36.7 % (20.0-51.0); MEAN CELL VOLUME 91 fl (80.0-100.0); MEAN CORPUSCULAR HGB CONC 31 g/dl (33.0-37.0); MEAN PLATELET VOLUME 10.3 fl (7.4-10.4); MONO # 0.6 (0.1-0.6); PLATELET COUNT 232 K/mm3 (130-400); RED BLOOD COUNT 2.79 M/mm3 (4.10-5.30); REDCELL DISTRIBUTION WIDTH-CV 17.9 % (11.5-14.5)
[2020-07-11 06:30] LABS: CALCIUM 8.1 mg/dL (8.4-10.2); CREATININE, serum 1.03 (0.52-1.25); POTASSIUM 3.7 mmol/L (3.4-5.0)
[2020-07-11 06:36] LABS: HEMATOCRIT 25.4 % (37.0-47.0); HEMOGLOBIN 7.9 g/dl (12.5-16.0); MEAN CORPUSCULAR HEMOGLOBIN 28 pg (27.0-31.0)
--- NOTE | 2020-07-11 06:42 | NUR ---
Report given to KARRIE Ace
--- NOTE | 2020-07-11 06:45 | NUR ---
appears to be sleeping, bedside shift report received from KARRIE Sy
--- NOTE | 2020-07-11 07:08 | NUR ---
Report given to KARRIE Ace
--- NOTE | 2020-07-11 08:00 | NUR ---
remains in bed and continues to appear to be sleeping
--- NOTE | 2020-07-11 09:20 | NUR ---
Rocío from [facility] reports they will be able to take the patient on 07/12 if the patient is stable. ANNE contacted the patient's daughter Carol to provide an update and discuss the discharge plan. She was agreeable to transporting the patient to [facility] on 07/12 if the patient is stable to discharge. ANNE collaborated the above information with the team.
--- NOTE | 2020-07-11 09:20 | NUR ---
up and about in room independently, c/o feeling shakey and having a headache, states this is nothing new that she has been experencing this for weeks, full assessment completed, see interventions for further info, denies needs at this time
[2020-07-11 09:39] VITALS: BP 157/65; PULSE 85; TEMP 97.5
--- NOTE | 2020-07-11 10:00 | NUR ---
sitting up on side of bed, occupational therapy assiting her with am hygiene,
--- NOTE | 2020-07-11 11:40 | NUR ---
continues to c/o headache, medicated with tylenol 650mg po
[2020-07-11 12:01] VITALS: BP 159/62; PULSE 66; TEMP 98.2
--- NOTE | 2020-07-11 12:50 | NUR ---
states headache is better after tylenol, now 3-11/24, ambulating in [place] with physical therapy
--- NOTE | 2020-07-11 15:39 | NUR ---
Custom Marine Canvas Fabricator contacted Flores with [facility], this ANNE and Flores kept missing eachothers phone calls for a patient update. ANNE faxed update to Flores.
--- NOTE | 2020-07-11 15:58 | NUR ---
in bed and appears to be sleeping, eyes closed, resp quiet and easy
[2020-07-11 16:04] VITALS: BP 157/86; PULSE 69; TEMP 98.6
--- NOTE | 2020-07-11 17:02 | NUR ---
sitting up on side of bed working on tablet
[2020-07-11 17:41] LABS: HEMATOCRIT 29.3 % (37.0-47.0)
--- NOTE | 2020-07-11 19:04 | NUR ---
bedside shift report given to KARRIE Giang
--- NOTE | 2020-07-11 19:20 | NUR ---
Patient assessed at this time. Alert and oriented x 4, and able to make needs known. Denies having pain and discomfort at this time. peripheral INT to left forearm. Site without redness, warmth, swelling, and pain. Denies SOB and dyspnea at rest, but does state she gets dyspnea with exertion. On oxygen at 1 L/min via NC. Denies cough. LS CTA. Respirations even and unlabored. HRR. Telemetry: sinus. Capillary refill less than 3 seconds. Non-tenting skin turgor. BSAx4. Abdomen soft and non-tender. 1+ edema BLE. Voices no questions, needs, or concerns at this time. Went over Hemoglobin results from this evening, increased to 9. Updated on plan to monitor labs in the morning, and possibly discharge to [facility] tomorrow. Resting in bed with call light within reach.
[2020-07-11 20:33] VITALS: BP 140/75; PULSE 70; TEMP 97.6
[2020-07-12 00:05] VITALS: BP 158/78; PULSE 78; TEMP 98.3
[2020-07-12 03:35] VITALS: BP 153/55; PULSE 74; TEMP 98.5
--- NOTE | 2020-07-12 05:06 | NUR ---
Patient has been resting in bed with call light within reach. Denies having pain and discomfort this shift. Continues on oxygen at 1 L/min via NC. Voices no questions, needs, or concerns at this time. Resting in bed with call light within reach.
--- NOTE | 2020-07-12 05:40 | NUR ---
Patient complained of headache. Given PRN APAP as requested.
[2020-07-12 06:19] LABS: BASO % 0.6 % (0.0-2.0); EOS # 0.2 (0.0-0.7); EOS % 3.7 % (0-4.0); GRAN # 2.4 (1.4-6.5); GRAN % 46.4 % (42.2-75.2); LYMPH # 1.9 (1.2-3.4); LYMPH % 37.2 % (20.0-51.0); MEAN CELL VOLUME 90 fl (80.0-100.0); MEAN CORPUSCULAR HGB CONC 31 g/dl (33.0-37.0); MEAN PLATELET VOLUME 10.5 fl (7.4-10.4); MONO # 0.6 (0.1-0.6); MONO % 11.3 % (1.7-9.3); PLATELET COUNT 254 K/mm3 (130-400); RED BLOOD COUNT 3.07 M/mm3 (4.10-5.30); REDCELL DISTRIBUTION WIDTH-CV 18.3 % (11.5-14.5)
[2020-07-12 06:22] LABS: HEMATOCRIT 27.6 % (37.0-47.0); HEMOGLOBIN 8.6 g/dl (12.5-16.0); MEAN CORPUSCULAR HEMOGLOBIN 28 pg (27.0-31.0)
[2020-07-12 06:37] LABS: CALCIUM 8.7 mg/dL (8.4-10.2); CREATININE, serum 0.94 (0.52-1.25); POTASSIUM 3.6 mmol/L (3.4-5.0)
--- NOTE | 2020-07-12 07:28 | NUR ---
Assessment complete. Patient sitting up in bed awake and alert at this time about to get out of bed to use the restroom. No complaints of pain or discomfort were expressed. SCDs in place, removed for patient to get out of bed. IV site is CD&I. Patient states she is good but did not sleep very well. No other needs were expressed at this time. Call light is in reach.
[2020-07-12 08:02] VITALS: BP 153/64; PULSE 71; TEMP 98.3
[2020-07-12] MEDS ORDERED: FERROUS SU325 MG/TAB PO (11:38)
[2020-07-12] MEDS ORDERED: TYLENOL 325MG325 MG PO (11:39)
[2020-07-12] MEDS ORDERED: PROTONIX 40MG T40 MG PO (11:39)
[2020-07-12] MEDS ORDERED: PRINIVIL5 MG PO (11:40)
--- NOTE | 2020-07-12 12:38 | NUR ---
ANNE informed patient would be discharging today 07/12/2020 to [facility]. Discharge orders faxed to facilty, ANNE spoke with facilty staff to discuss discharge, and daughter Carol was also contacted to discuss discharge. Daughter provides that she will be picking up patient at 2:00 for transport. Nothing further.
[2020-07-12 13:23] VITALS: BP 153/64; PULSE 71; TEMP 98.3
--- NOTE | 2020-07-12 15:13 | NUR ---
Patient left the floor at this time. Discharge packet given. Daughter picked her up. No further questions or concerns.
== END 2020-07-12 15:14 | disposition swing bed (61) ==
LOC: COL.ER 17:27 → MEDICAL 23:01
PROVIDERS: Family Medicine; Nurse Practitioner Family; Physician Assistant; Student in an Organized Health Care Education/Training Program; ADMIT Hospitalist
DX: R53.1 Weakness (principal); U07.1 COVID-19; N17.9 Acute kidney failure, unspecified; D64.9 Anemia, unspecified; I48.91 Unspecified atrial fibrillation; I10 Essential (primary) hypertension; F41.9 Anxiety disorder, unspecified; K21.9 Gastro-esophageal reflux disease without esophagitis; E78.5 Hyperlipidemia, unspecified; Z88.1 Allergy status to other antibiotic agents; Z88.5 Allergy status to narcotic agent; Z88.8 Allergy status to other drugs, medicaments and biological substances; Z79.01 Long term (current) use of anticoagulants; Z96.653 Presence of artificial knee joint, bilateral; Z90.710 Acquired absence of both cervix and uterus
CPT/HCPCS: 99232-AI; C9113; G0378; J7030; P9016

== ENCOUNTER 2020-12-20 12:45 | Outpatient (RCR) | payer MEDICARE ==
[~2020-12-20 12:45] MED LIST changes: +FERROUS SU325 MG/TAB PO; +LYRICA 100MG C100 M1 PO; +PRINIVIL5 MG PO; +PROTONIX 40MG T40 MG PO; +TOPROL XL 50MG50 MG PO
== END 2020-12-25 | disposition home or self-care (01) ==
LOC: WSST
DX: R41.81 Age-related cognitive decline (principal)

== ENCOUNTER 2021-03-14 11:15 | Outpatient (RCR) | payer MEDICARE | END 2021-04-03 | disposition home or self-care (01) | LOC: WSST | DX: R41.841 Cognitive communication deficit (principal) ==

== ENCOUNTER 2021-06-20 12:45 | Outpatient (RCR) | payer MEDICARE | END 2021-07-25 | disposition home or self-care (01) | LOC: WSST | DX: R41.81 Age-related cognitive decline (principal) ==

== ENCOUNTER 2021-07-30 18:17 | Inpatient (IN) | payer MEDICARE ==
[~2021-07-30] VITALS: Ht 162.6 cm; Wt 86.4 kg
[2021-07-30 18:54] LABS: BASO # 0.1 K/mm3 (0.0-0.2); BASO % 0.9 % (0.0-2.0); EOS % 0.3 % (0.0-4.0); GRAN # 4.2 K/mm3 (1.4-6.5); GRAN % 54.4 % (42.2-75.2); HEMOGLOBIN 11.6 g/dl (12.5-16.0); LYMPH # 2.7 K/mm3 (1.2-3.4); LYMPH % 34.3 % (20.0-51.0); MEAN CELL VOLUME 91 fl (80.0-100.0); MEAN CORPUSCULAR HEMOGLOBIN 29 pg (27-31); MEAN CORPUSCULAR HGB CONC 32 g/dl (33.0-37.0); MEAN PLATELET VOLUME 9.9 fl (7.4-10.4); MONO # 0.8 K/mm3 (0.1-0.6); MONO % 9.7 % (1.7-9.3); PLATELET COUNT 319 K/mm3 (130-400); RED BLOOD COUNT 4.03 M/mm3 (4.10-5.30); REDCELL DISTRIBUTION WIDTH-CV 14.3 % (11.5-14.5)
[2021-07-30 18:59] LABS: HEMATOCRIT 36.5 % (37.0-47.0)
[2021-07-30 19:11] LABS: ALBUMIN 3.7 gm/dL (3.4-4.8); BILIRUBIN,TOTAL 0.3 mg/dL (0.2-1.2); CALCIUM 9.4 mg/dL (8.4-10.2); CREATININE, serum 1.84 mg/dL (0.57-1.11); TOTAL PROTEIN 7.2 gm/dL (6.2-8.1)
[2021-07-30 19:19] LABS: TROPONIN-I 0.036 ng/mL (0.00-0.033)
[2021-07-30 21:13] LABS: INR 1.5 (0.8-3.0); PROTHROMBIN TIME 16.5 SECONDS (9.7-12.8)
[2021-07-30 21:16] LABS: PARTIAL THROMBOPLASTIN TIME 28.5 SECONDS (26.0-37.0)
[2021-07-31] VITALS (29 sets, daily range): BP systolic 100–154; BP diastolic 38–94; PULSE 68–156; TEMP 97.5–98
[2021-07-31 07:06] LABS: BASO # 0.1 K/mm3 (0.0-0.2); BASO % 0.9 % (0.0-2.0); EOS % 0.4 % (0.0-4.0); GRAN # 2.3 K/mm3 (1.4-6.5); GRAN % 42.4 % (42.2-75.2); LYMPH # 2.5 K/mm3 (1.2-3.4); LYMPH % 45.9 % (20.0-51.0); MEAN CELL VOLUME 94 fl (80.0-100.0); MEAN CORPUSCULAR HEMOGLOBIN 29 pg (27-31); MEAN CORPUSCULAR HGB CONC 31 g/dl (33.0-37.0); MEAN PLATELET VOLUME 10.6 fl (7.4-10.4); MONO # 0.5 K/mm3 (0.1-0.6); PLATELET COUNT 263 K/mm3 (130-400); RED BLOOD COUNT 3.47 M/mm3 (4.10-5.30); REDCELL DISTRIBUTION WIDTH-CV 14.3 % (11.5-14.5)
[2021-07-31 07:07] LABS: HEMATOCRIT 32.5 % (37.0-47.0)
[2021-07-31 07:11] LABS: CALCIUM 8.5 mg/dL (8.4-10.2); CREATININE, serum 1.65 mg/dL (0.57-1.11); MAGNESIUM 2.2 mg/dL (1.6-2.6); POTASSIUM 3.6 mmol/L (3.5-4.5)
--- NOTE | 2021-07-31 08:22 | NUR ---
Patient sitting in bed upon entering the room. Currently NPO until Dr. Ceja assesses and determines whether or not a pacemaker will need placed. Morning medications administered w/ a sip of water. Flu shot given in the left deltoid w/o any difficulty. Patient is very pleasant, A&Ox4, independent w/ call light in reach.
--- NOTE | 2021-07-31 11:43 | NUR ---
Armin woodson initiated by this RN w/ this assistance of KARRIE Palmer. VS running Q1.
--- NOTE | 2021-07-31 13:58 | NUR ---
The patient is out of her room for a test. ANNE contacted the patient's daughter, Carol Ortez (ph#[phone]), to discuss discharge plan. The patient lives alone in [place]. Carol states that her and her live outside of [place]. Carol reports that the patient is independent with ADLs and has a cane she uses as needed. The patient's PCP is Dr. Kayley Montanez and she receives her medications from [facility]. The patient's DPOA-HC is in EMR and it designates Carol. The alternate is the patient's other daughter, Yissel Escobedo. Carol reports that the plan is for the patient to return home upon discharge. ANNE to ask for PT/OT to be ordered. SW to continue to monitor. *Discharge plan: home*
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
--- NOTE | 2021-07-31 18:12 | NUR ---
Patient's HR is currently remaining in the 70s-80s on the cardizem gtt. Patient does feel tired. Family updated on patients condition.
[2021-08-01] VITALS (20 sets, daily range): BP systolic 101–174; BP diastolic 53–107; PULSE 56–125; TEMP 98–98.4
[2021-08-01 06:19] LABS: BASO # 0.1 K/mm3 (0.0-0.2); BASO % 1.1 % (0.0-2.0); EOS % 0.3 % (0.0-4.0); GRAN # 3.3 K/mm3 (1.4-6.5); GRAN % 51.1 % (42.2-75.2); HEMOGLOBIN 10.3 g/dl (12.5-16.0); LYMPH # 2.4 K/mm3 (1.2-3.4); LYMPH % 36.9 % (20.0-51.0); MEAN CORPUSCULAR HEMOGLOBIN 29 pg (27-31); MEAN CORPUSCULAR HGB CONC 32 g/dl (33.0-37.0); MEAN PLATELET VOLUME 10.4 fl (7.4-10.4); MONO # 0.7 K/mm3 (0.1-0.6); MONO % 10.1 % (1.7-9.3); PLATELET COUNT 289 K/mm3 (130-400); REDCELL DISTRIBUTION WIDTH-CV 14.1 % (11.5-14.5)
[2021-08-01 06:20] LABS: HEMATOCRIT 32.1 % (37.0-47.0); MEAN CELL VOLUME 89 fl (80.0-100.0)
[2021-08-01 06:55] LABS: CALCIUM 8.7 mg/dL (8.4-10.2); CREATININE, serum 1.34 mg/dL (0.57-1.11); POTASSIUM 3.5 mmol/L (3.5-4.5)
--- NOTE | 2021-08-01 07:55 | NUR ---
ASSESSMENT COMPLETE FOR THIS SHIFT. PT COOPERATIVE WITH CARES. PT VERY UPBEAT TONIGHT. SHE TALKED A LOT ABOUT HER NEW [place]AB[employer] BORN ON HER BIRTHDAY. PT DENIES PAIN, PALPITATIONS, SOB OR DIZZINESS DURING THIS SHIFT. PT'S CARDIZEM DRIP INCREASED TO 7 PER ORDERS FOR HIGH HEART RATE AND BLOOD PRESSURES. PT STATES SHE HAS NO OTHER NEEDS AT THIS TIME. CALL LIGHT WITHIN REACH.
--- NOTE | 2021-08-01 08:26 | NUR ---
Patient taken for pacemaker placement at approx. 0800. Cardizem gtt running at 7mL/hr. This RN received a call from [email or web address] that patient was in A-fib w/ RVR at approx. 0745. At this time, patient was getting up to go to the bathroom w/ the assistance of Madyson - PCT. This RN instructed the patient and PCT that bedside commode needed to be used instead, d/t exertion causing too mcuh stress on patient's heart.
--- NOTE | 2021-08-01 08:55 | NUR ---
SEE MERGE DOCUMENTATION FOR MEDICATION ADMINISTRATION AND INTRA/POST PROCEDURE SEDATION ASSESSMENTS.
--- NOTE | 2021-08-01 10:15 | NUR ---
Several attempts to visit; Patient sleeping, Prefinish Operator left Prayer card offering God's blessings on her bed table.
--- NOTE | 2021-08-01 11:16 | NUR ---
Patient back up from procedure. Left arm is in sling, dressing is CDI, ice placed over site. Post-op VS initiated at 0955. RN from [employer] [facility] [employer] informed this RN that the cardizem gtt rate was increased form 7mL/hr to 7.5mL/hr.
[2021-08-01] MEDS ORDERED: XARELTO20 MG PO (12:36)
--- NOTE | 2021-08-01 22:16 | NUR ---
Patient assessed around 1944. Denies pain and discomfort. Dressing to left chest from pacemaker placement CDI. Sling to left arm. Cardizem drip running at 10 mg/hr per orders to peripheral IV to left hand. Patient voices no questions, needs, or concerns at this time. Aware that she is NPO after midnight for JOSÉ MIGUEL/CV tomorrow. Telemetry continues to show irregular rhythm. In bed with call light within reach.
[2021-08-02] VITALS (14 sets, daily range): BP systolic 103–161; BP diastolic 52–98; PULSE 67–104; TEMP 97.4–97.8
--- NOTE | 2021-08-02 06:01 | NUR ---
Patient recieved PRN APAP once this shift for discomfort to left chest/shoulder. Pacemaker device download completed this morning. Has been NPO since midnight for JOSÉ MIGUEL/CV today. Consent not signed at this time due to not knowing what the JOSÉ MIGUEL is. Patient voices no questions, needs, or concerns at this time. In bed with call light within reach.
[2021-08-02 06:21] LABS: BASO # 0.1 K/mm3 (0.0-0.2); EOS % 0.5 % (0.0-4.0); GRAN # 3.1 K/mm3 (1.4-6.5); LYMPH # 2.2 K/mm3 (1.2-3.4); LYMPH % 36.2 % (20.0-51.0); MEAN CELL VOLUME 92 fl (80.0-100.0); MEAN CORPUSCULAR HEMOGLOBIN 29 pg (27-31); MEAN CORPUSCULAR HGB CONC 31 g/dl (33.0-37.0); MEAN PLATELET VOLUME 10.3 fl (7.4-10.4); MONO # 0.6 K/mm3 (0.1-0.6); PLATELET COUNT 261 K/mm3 (130-400); RED BLOOD COUNT 3.47 M/mm3 (4.10-5.30); REDCELL DISTRIBUTION WIDTH-CV 14.3 % (11.5-14.5)
[2021-08-02 06:29] LABS: HEMATOCRIT 31.9 % (37.0-47.0)
[2021-08-02 06:42] LABS: CREATININE, serum 1.31 mg/dL (0.57-1.11); POTASSIUM 4.1 mmol/L (3.5-4.5)
[2021-08-02] MEDS ORDERED: CLEOCIN HCL300 MG PO (11:52)
[2021-08-02] MEDS ORDERED: PACERONE400 MG PO (11:54)
[2021-08-02] MEDS ORDERED: XARELTO15 MG PO (11:59)
--- NOTE | 2021-08-02 14:19 | NUR ---
The patient is to discharge back home today, 08/02. ANNE met with the patient and her daughter to review discharge plan. The patient had no questions or concerns about returning home. She states that her daughter will be staying with her for a couple of days. ANNE presented and read the IM form outloud to her. The patient verbalized understanding and signed the form. The patient declined a copy. No additional needs at this time.
--- NOTE | 2021-08-02 15:59 | NUR ---
IV REMOVED PT DISCHARGE TEACHING COMPLETE. NO QUESTIONS OR CONCERNS AT THIS TIME. INFORMATION ABOUT FOLLOW UP APPOINTMENTS AND MEDICATIONS GIVEN. INFORMATION ABOUT INCISION CARE GIVEN.
== END 2021-08-02 16:00 | disposition home or self-care (01) | DRG 242 ==
LOC: COL.ER 18:17 → MEDICAL 19:58
PROVIDERS: Nurse Practitioner; Physician Assistant; Student in an Organized Health Care Education/Training Program; ADMIT Internal Medicine
PROC: 0JH606Z Insertion of Pacemaker, Dual Chamber into Chest Subcutaneous Tissue and Fascia, Open Approach (ICD-10-PCS; principal; 2021-08-01)
PROC: 02H60JZ Insertion of Pacemaker Lead into Right Atrium, Open Approach (ICD-10-PCS; 2021-08-01)
PROC: 5A2204Z Restoration of Cardiac Rhythm, Single (ICD-10-PCS; 2021-08-02)
PROC: B24BZZ4 Ultrasonography of Heart with Aorta, Transesophageal (ICD-10-PCS; 2021-08-02)
DX: I48.0 Paroxysmal atrial fibrillation (principal); I21.A1 Myocardial infarction type 2; N17.9 Acute kidney failure, unspecified; N18.4 Chronic kidney disease, stage 4 (severe); E78.5 Hyperlipidemia, unspecified; I12.9 Hypertensive chronic kidney disease with stage 1 through stage 4 chronic kidney disease, or unspecified chronic kidney disease; Z66 Do not resuscitate; D64.9 Anemia, unspecified; F41.9 Anxiety disorder, unspecified; K21.9 Gastro-esophageal reflux disease without esophagitis; I49.5 Sick sinus syndrome; F32.A Depression, unspecified; G60.9 Hereditary and idiopathic neuropathy, unspecified; Z79.01 Long term (current) use of anticoagulants; Z88.1 Allergy status to other antibiotic agents
CPT/HCPCS: 99223-AI; 99232-AI; 99233-AI; 99239; A9500; C1785; C1894; C1898; J0690; J1644; J2250; J2785; J3010; J3475; J7040; Q9967

== ENCOUNTER 2021-09-24 08:14 | Day surgery (SDC) | payer MEDICARE ==
[~2021-09-24] VITALS: Ht 162.6 cm; Wt 89.9 kg
[~2021-09-24 08:14] MED LIST changes: +EFFEXOR XR75 MG/CAP PO; -EFFEXOR-XR150 MG PO; +PACERONE400 MG PO; +XARELTO15 MG PO
[2021-09-24 10:13] VITALS: BP 162/76; PULSE 72; TEMP 98.5
[2021-09-24] MEDS ORDERED: DESYREL 50MG50 MG PO (10:19)
[2021-09-24 10:20] VITALS: BP 156/83; PULSE 71; TEMP 98
[2021-09-24] MEDS ORDERED: DYAZIDE 25 MG-31 CAP PO (10:20)
[2021-09-24] MEDS ORDERED: PACERONE100 MG PO (10:20)
[2021-09-24] MEDS ORDERED: NATURAL IRON65 MG PO (10:23)
[2021-09-24] MEDS ORDERED: XARELTO20 MG PO (10:25)
[2021-09-24] MEDS ORDERED: PRESERVISION1 SGL PO (10:28)
[2021-09-24 10:50] VITALS: BP 133/73; PULSE 70
[2021-09-24 11:05] VITALS: BP 166/100; PULSE 74
--- NOTE | 2021-09-24 12:15 | NUR ---
1050 Pt returns from endo procedure via cart and RN assist to [facility]. Pt ambulates from cart to recliner with RN assist. Monitors on and alarms set. Call light within reach. Pt alert and oriented. Pt requests diet pepsi and muffin. Pt denies any pain or nausea. Dr. Wing in to speak with pt. 1105 Pt taking food and drink well. No complications noted. 1120 Discharge instructions given to pt. All questions answered to pt and daughters satisfaction. Reminded and encouraged pt and daughter to make appointment with primary to adress high blood pressure. Handed to pt are a thank you card and discharge information. 1215 Pt transferred out of the hospital via wheelchair and RN assist, to private vehicle driven by daughter Carol.
== END 2021-09-24 12:15 | disposition home or self-care (01) ==
LOC: SDCO 08:14
DX: K29.30 Chronic superficial gastritis without bleeding (principal); I12.9 Hypertensive chronic kidney disease with stage 1 through stage 4 chronic kidney disease, or unspecified chronic kidney disease; N18.9 Chronic kidney disease, unspecified; D50.0 Iron deficiency anemia secondary to blood loss (chronic); Z86.010 Personal history of colon polyps; K57.31 Diverticulosis of large intestine without perforation or abscess with bleeding; I48.0 Paroxysmal atrial fibrillation; K64.0 First degree hemorrhoids; E78.5 Hyperlipidemia, unspecified; K21.9 Gastro-esophageal reflux disease without esophagitis; K44.9 Diaphragmatic hernia without obstruction or gangrene; M19.90 Unspecified osteoarthritis, unspecified site; G62.9 Polyneuropathy, unspecified; Z79.899 Other long term (current) drug therapy; Z79.891 Long term (current) use of opiate analgesic
CPT/HCPCS: J2704

== ENCOUNTER 2022-01-09 09:00 | Outpatient (RCR) | payer MEDICARE ==
[~2022-01-09] VITALS: Ht 162.6 cm; Wt 91.0 kg
[2022-01-09] VITALS (9 sets, daily range): BP systolic 133–164; BP diastolic 56–75; PULSE 70–73; TEMP 97.7–98.3
[~2022-01-09 09:00] MED LIST changes: +DESYREL 50MG50 MG PO; +PACERONE100 MG PO; +PRESERVISION1 SGL PO
[2022-01-09] MEDS ORDERED: MIRTAZAPINE7.5 MG PO (11:02)
[2022-01-09] MEDS ORDERED: PRINIVIL20 MG PO (11:03)
== END 2022-01-09 18:12 ==
LOC: EUO 09:00
DX: D64.9 Anemia, unspecified (principal)
CPT/HCPCS: J7050; P9016

== ENCOUNTER → 2022-01-29 | Outpatient (CLI) | payer MEDICARE ==
[~2022-01-29] MED LIST changes: +MIRTAZAPINE7.5 MG PO; +PRINIVIL20 MG PO
== END ==
LOC: COL.CARD 12-25 10:00
DX: R40.0 Somnolence (principal); R41.3 Other amnesia

== ENCOUNTER 2023-05-29 12:23 | Emergency (ER) | payer MEDICARE ==
[~2023-05-29] VITALS: Ht 162.6 cm; Wt 86.4 kg
[~2023-05-29 12:23] MED LIST changes: +LIPITOR 40MG TA40 MG PO; +PREDNISONE20 MG PO; +PRINIVIL10 MG PO; +TOPROL XL100 MG PO
[2023-05-29 13:25] LABS: BASO # 0.1 K/mm3 (0.0-0.2); BASO % 1.3 % (0.0-2.0); EOS # 0.1 K/mm3 (0.0-0.7); EOS % 1.3 % (0.0-4.0); GRAN # 2.8 K/mm3 (1.4-6.5); GRAN % 50.1 % (42.2-75.2); HEMATOCRIT 41.2 % (37.0-47.0); LYMPH # 2.1 K/mm3 (1.2-3.4); LYMPH % 37.9 % (20.0-51.0); MEAN CELL VOLUME 96 fl (80.0-100.0); MEAN CORPUSCULAR HEMOGLOBIN 30 pg (27-31); MEAN CORPUSCULAR HGB CONC 32 g/dl (33.0-37.0); MEAN PLATELET VOLUME 10.8 fl (7.4-10.4); MONO # 0.5 K/mm3 (0.1-0.6); MONO % 8.3 % (1.7-9.3); PLATELET COUNT 210 K/mm3 (130-400); RED BLOOD COUNT 4.31 M/mm3 (4.10-5.30); REDCELL DISTRIBUTION WIDTH-CV 13.5 % (11.5-14.5)
[2023-05-29 13:44] LABS: ALBUMIN 4.2 gm/dL (3.4-4.8); BILIRUBIN,TOTAL 0.9 mg/dL (0.2-1.2); CALCIUM 9.8 mg/dL (8.4-10.2); CREATININE, serum 1.44 mg/dL (0.57-1.11); POTASSIUM 4.9 mmol/L (3.5-4.5); TOTAL PROTEIN 7.8 gm/dL (6.2-8.1)
[2023-05-29 14:15] LABS: COLLECTION METHOD CLEAN CATCH
[2023-05-29 14:28] LABS: URINE APPEARANCE Clear (CLEAR/HAZY); URINE COLOR Yellow (YELLOW)
[2023-05-29 14:29] LABS: PH 7.5 (5.0-8.5); SQUAMOUS EPITHELIAL None Seen /hpf (0-10); URINE BACTERIA None Seen /hpf (NONE SEEN); URINE BLOOD TRACE-INTACT (NEGATIVE); URINE GLUCOSE Negative (NEGATIVE); URINE KETONE Negative (NEGATIVE); URINE NITRATE Negative (NEGATIVE); URINE PROTEIN(semi-quant) 2+ (NEGATIVE); URINE RBC 0-2 /hpf (0-2); URINE UROBILINOGEN 0.2 E.U/dL (0.2-1.0)
[2023-05-29] MEDS ORDERED: ZOFRAN ODT4 MG PO (14:46)
[2023-05-29 15:03] VITALS: BP 167/85; PULSE 78; TEMP 98.1
== END 2023-05-29 14:53 | disposition home or self-care (01) ==
LOC: COL.ER 12:23
PROVIDERS: Physician Assistant
DX: B34.9 Viral infection, unspecified (principal); R63.0 Anorexia; R51.9 Headache, unspecified; R53.83 Other fatigue; R11.0 Nausea; R10.30 Lower abdominal pain, unspecified; R19.7 Diarrhea, unspecified; I48.91 Unspecified atrial fibrillation; Z20.822 Contact with and (suspected) exposure to COVID-19; Z79.01 Long term (current) use of anticoagulants
CPT/HCPCS: J2405; J7030

== ENCOUNTER 2023-05-31 14:42 | Emergency (ER) | payer MEDICARE ==
[~2023-05-31] VITALS: Ht 162.6 cm; Wt 86.4 kg
[~2023-05-31 14:42] MED LIST changes: +ZOFRAN ODT4 MG PO
[2023-05-31 14:49] VITALS: TEMP 97.8
[2023-05-31 15:30] LABS: BASO # 0.1 K/mm3 (0.0-0.2); EOS # 0.2 K/mm3 (0.0-0.7); EOS % 3.4 % (0.0-4.0); GRAN # 2.5 K/mm3 (1.4-6.5); GRAN % 41.2 % (42.2-75.2); HEMATOCRIT 38.1 % (37.0-47.0); HEMOGLOBIN 12.5 g/dl (12.5-16.0); LYMPH # 2.7 K/mm3 (1.2-3.4); LYMPH % 43.9 % (20.0-51.0); MEAN CELL VOLUME 94 fl (80.0-100.0); MEAN CORPUSCULAR HEMOGLOBIN 31 pg (27-31); MEAN CORPUSCULAR HGB CONC 33 g/dl (33.0-37.0); MEAN PLATELET VOLUME 9.7 fl (7.4-10.4); MONO # 0.6 K/mm3 (0.1-0.6); PLATELET COUNT 216 K/mm3 (130-400); RED BLOOD COUNT 4.05 M/mm3 (4.10-5.30); REDCELL DISTRIBUTION WIDTH-CV 13.3 % (11.5-14.5)
[2023-05-31 15:50] LABS: BILIRUBIN,TOTAL 0.7 mg/dL (0.2-1.2); C-REACTIVE PROTEIN 0.12 mg/dL (0.00-0.50); CALCIUM 9.7 mg/dL (8.4-10.2); CREATININE, serum 1.98 mg/dL (0.57-1.11); MAGNESIUM 1.8 mg/dL (1.6-2.6); POTASSIUM 3.7 mmol/L (3.5-4.5); TOTAL PROTEIN 6.9 gm/dL (6.2-8.1)
[2023-05-31 17:08] VITALS: BP 159/74; PULSE 70
== END 2023-05-31 17:44 | disposition home or self-care (01) ==
LOC: COL.ER 14:42
PROVIDERS: Emergency Medicine
DX: G62.9 Polyneuropathy, unspecified (principal); R79.89 Other specified abnormal findings of blood chemistry; Z79.899 Other long term (current) drug therapy; Z88.5 Allergy status to narcotic agent
CPT/HCPCS: J1885; J7030

== ENCOUNTER 2024-02-02 11:38 | Emergency (ER) | payer MEDICARE ==
[~2024-02-02] VITALS: Ht 160 cm; Wt 85.5 kg
[~2024-02-02 11:38] MED LIST changes: +ATACAND 16M16 MG/TAB PO; +CORDARONE200 MG/TAB PO; +LYRICA 25MG CAP25 MG PO; +MAXZIDE-25MG TA1 TAB PO; +NORVASC 5MG5 MG/TAB PO; +OMNICEF 300MG300 MG PO
[2024-02-02 11:47] VITALS: TEMP 98.2
[2024-02-02] MEDS ORDERED: valACYclovir 500 MG TAB PO ONE (12:30)
[2024-02-02] MEDS ORDERED: predniSONE 10 MG TAB PO ONE (12:30)
[2024-02-02] MEDS ORDERED: Tetracaine 0.5% Ophth Soln 4 ML BOTTLE OP ONE (12:30)
[2024-02-02] MEDS ORDERED: PREDNISONE50 MG PO (12:43)
[2024-02-02] MEDS ORDERED: VALTREX1 GM PO (12:43)
[2024-02-02 13:39] VITALS: BP 158/78; PULSE 76
== END 2024-02-02 13:39 | disposition home or self-care (01) ==
LOC: COL.ER 11:38
DX: B02.9 Zoster without complications (principal)
CPT/HCPCS: J7512